=== PATIENT | male | born 1990 | race Caucasian/White ===

== ENCOUNTER 2023-01-05 14:07 | Outpatient (REF) | payer OTHER, SELFPAY ==
[2023-01-05 14:53] LABS: Influenza A PCR NEGATIVE (Negative); Influenza B PCR NEGATIVE (Negative); Resp Syncy Virus RNA Qual PCR NEGATIVE (Negative); SARS COV2 PCR INHOUSE NEGATIVE (Negative)
== END 2023-01-05 14:08 | disposition home or self-care (01) ==
LOC: HO.LNP 14:07
PROVIDERS: Visit Provider Physician Assistant
DX: Z20.822 Contact with and (suspected) exposure to COVID-19 (principal); B34.9 Viral infection, unspecified
CPT/HCPCS: 0241U

== ENCOUNTER 2023-04-07 08:07 | Outpatient (REF) | payer OTHER, SELFPAY ==
[2023-04-07 11:08] LABS: C Reactive Protein 0.18 mg/dL (< or = 0.50)
[2023-04-07 11:39] LABS: Folate 10.5 ng/mL (> or = 4.0); Vitamin B12 233 pg/mL (200-900)
[2023-04-09 14:54] LABS: H Pylori Breath Test Negative (Negative)
[2023-04-14 16:23] LABS: Vitamin D 25-OH, D2 <4 ng/mL; Vitamin D 25-OH, D3 15 ng/mL; Vitamin D 25-OH, Total 15 ng/mL (30-100)
== END 2023-04-07 08:08 | disposition home or self-care (01) ==
LOC: HO.LAB 08:07
PROVIDERS: PCP Nurse Practitioner Family; Referring Provider Nurse Practitioner Family; Visit Provider Nurse Practitioner Family
DX: R19.7 Diarrhea, unspecified (principal); E55.9 Vitamin D deficiency, unspecified; K58.9 Irritable bowel syndrome, unspecified; R19.4 Change in bowel habit; K58.2 Mixed irritable bowel syndrome; K21.9 Gastro-esophageal reflux disease without esophagitis; R14.0 Abdominal distension (gaseous)
CPT/HCPCS: 36415; 82306; 82607; 82746; 83013; 86140

== ENCOUNTER 2023-06-29 08:04 | Outpatient (AMB) | payer OTHER, SELFPAY ==
--- NOTE | 2023-06-29 08:10 | MHC.OFFVIS ---
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 Will give him script for Citrucel to help him bulk his stools IBS (irritable bowel syndrome) Frequent loose stools postprandially specially in the morning. Patient does not feel like he empties completely. Frequent postprandial bloating. Discussed with patient avoiding dietary triggers. Low FODMAP diet discussed with him. List of food recommended as well as list of food to avoid given to patient. GERD (gastroesophageal reflux disease) Patient reports occasional acid reflux without dyspepsia, dysphagia or odynophagia. Patient does eat lot of spicy food. Patient was encouraged to decrease the amount of spicy food that he eats. Patient was encouraged to avoid dietary triggers and late night snacking. Staying upright for minimum 3 hours after meals discussed with patient. Postprandial abdominal bloating Postprandial abdominal bloating occasionally. Patient was encouraged to follow low FODMAP diet. List of food recommended as well as list of food to avoid giving the patient. Patient was sent by PCP for blood work he was encouraged to get it done today. I will add vitamin D, B12, folate. Will do H pylori breath test. I will see patient in 3 months, sooner if needed patient patient is agreeable to this plan and verbalizes understanding of instructions. He was given the opportunity to ask questions and all questions answered. ? Thank you for allowing me to participate in his care Plan Orders Orders Vitamin B12 and Folate Today R19.7 Vitamin D 25-OH (D2 and D3) Today E55.9 C Reactive Protein Today K58.9 H Pylori Breath Test Today Medications New methylcellulose (laxative) (Citrucel) take it with full glass of water 500 mg PO DAILY 90 tabs 2RF K59.00 TODAY'S VISIT: Patient is here today for follow-up and to discuss lab results. Patient reports that he has been doing better since the last time I have seen him. Patient states that he changed his diet. However he reports that sometimes he will still eat fast food and that is when he feels like the symptoms are worse. Patient will have loose stools and postprandial abdominal bloating. Lab results discussed with patient. Patient has not picked up in the prescription from the pharmacy vitamin-D or the Citrucel. Patient denies any abdominal pain or discomfort. Patient denies any nausea or vomiting. Patient denies any dyspepsia, dysphagia or odynophagia. Patient denies any melena, hematochezia, unintentional weight loss or ribbon like stools. PFSH Surgical History No pertinent past surgical history Family History Father No problems noted. Mother Depression Brother No problems noted. Maternal Grandfather Cancer of prostate Parkinson disease Maternal Grandmother No problems noted. Paternal Grandmother No problems noted. Paternal Grandfather High cholesterol Social History Household Members: Significant Other Alcohol intake: current Alcohol intake frequency: holidays/special occasions only Patient Tobacco Use Status: Never used Tobacco Substance Use Type: Marijuana Review of Systems Const Denies weight gain and Denies weight loss ENT Reports no additional complaints, Denies dysphagia and Denies odynophagia Card Reports no additional complaints Resp Reports no additional complaints GI Denies abdominal pain, Denies belching, Denies melena, Denies bloating, Denies change in bowel habits, Denies dysphagia, Denies excessive flatus, Denies dyspepsia, Denies heartburn, Denies diarrhea, Reports loose stools (occasional), Denies nausea, Denies odynophagia and Denies vomiting Reports no additional complaints Musc Reports no additional complaints Neuro Reports no additional complaints Psych Reports no additional complaints Endo Reports no additional complaints Physical Exam Vital Signs: Last Vital Signs Pulse 92 06/29/23 08:11 BP 139/77 06/29/23 08:11 BMI result Body Mass Index 28.0 Const General: healthy appearing, no acute distress and well developed Nutritional Appearance: well nourished Orientation/consciousness: patient oriented x3 HEENT Head: Yes normal to inspection, Yes normocephalic and Yes atraumatic Face and sinus: Yes normal facial exam Mouth: Normal oral and palatal mucosa present Throat: Yes posterior oropharynx normal, Yes tonsils normal and Yes uvula midline Eyes General: appearance normal, both eyes and all related structures Neck Neck: Yes normal visual inspection, Yes full ROM and Yes trachea midline Thyroid: Thyroid normal Resp Effort & Inspection: normal respiratory effort, able to speak in complete sentences, no tracheal deviation and symmetric chest movement Auscultation: clear to auscultation bilaterally Cardio Rate: regular rate Heart sounds: S1 normal heart sound present and S2 normal heart sound present GI Inspection: Yes normal to inspection and No distended Palpation (GI): Soft to palpation, not firm, nontender and No hepatosplenomegaly present Auscultation: normal bowel sounds General: Yes no CVA tenderness Back/Spine/Pelvis Back: no CVA tenderness Skin General skin exam: elasticity normal, turgor normal and dry skin Neuro General: patient oriented x3 Psych Appearance: grossly normal Mental Status: mental status grossly normal Speech and movement: Normal speech and movement present Results Reviewed Results Reviewed: Laboratory Tests 04/07/23 04/07/23 04/07/23 08:51 09:10 09:10 C-Reactive Protein 0.18 Vitamin B12 233 25-OH Vitamin D Total 15 L Folate 10.5 H. pylori Breath Test Negative Assessment & Plan Assessment & Plan (1) Increased bowel frequency: Code(s): R19.4 - Change in bowel habit (2) IBS (irritable bowel syndrome): Code(s): K58.9 - Irritable bowel syndrome without diarrhea Qualifiers: Irritable bowel syndrome type: with both diarrhea and constipation Qualified Code(s): K58.2 - Mixed irritable bowel syndrome (3) Postprandial abdominal bloating: Code(s): R14.0 - Abdominal distension (gaseous) Plan Patient will continue diet elimination. She is aware of which food is causing him have loose stools postprandially. He will follow-up with our office on as needed basis. He is agreeable to this plan and verbalizes understanding of instructions. Take care of her review ask questions and all questions answered. Thank you for allowing me to participate in his care Medications: Refilled cholecalciferol (vitamin D3) 50 mcg PO DAILY 90 caps 3RF R79.89 - Other specified abnormal findings of blood chemistry methylcellulose (laxative) (Citrucel) take it with full glass of water 500 mg PO DAILY 90 tabs 2RF K59.00 - Constipation, unspecified Coding Level of Care Code Est Pt Level 3 (23108) Diagnoses Increased bowel frequency R19.4 IBS (irritable bowel syndrome) K58.2 Irritable bowel syndrome type: with both diarrhea and constipation Postprandial abdominal bloating R14.0 Time Spent (min) 30 Comment 20 minutes spent with patient and additional 10 minutes spent reviewing his records
[2023-06-29 08:11] VITALS: BP 139/77; PULSE 92; BMI 28.0
== END 2023-06-29 08:38 | disposition home or self-care (01) ==
PROVIDERS: Visit Provider Nurse Practitioner Family
DX: R19.4 Change in bowel habit (principal); K58.2 Mixed irritable bowel syndrome; R14.0 Abdominal distension (gaseous)
CPT/HCPCS: 99213

== ENCOUNTER → 2023-06-29 08:04 | Outpatient (BNVA) | payer OTHER, SELFPAY | PROVIDERS: Visit Provider Nurse Practitioner Family ==

== ENCOUNTER 2024-02-24 10:14 | Outpatient (AMB) | payer OTHER, SELFPAY ==
--- NOTE | 2024-02-24 10:31 | A.OFFPC_ITS ---
Vital Signs 02/24/24 10:32 Height 5 ft 8 in Weight 176 lb BMI 26.8 BP 122/78 Blood Pressure Location Rt brachial Position Sitting Pulse 84 Pulse Source Pulse Oximeter Pulse Oximetry (%) 98 Oxygen Delivery Method Room Air Intake Visit Reasons: Medication review/depression Intake Note: Patient here to discuss ADHD meds. Pt states he sees a therapist for depression. Allergies oxycodone Adverse Reaction (Unknown, Verified 02/24/24 12:59) Itchy skin Medication List - Last Reconciled 02/24/24 by DARRYL Pope No Known Home Meds Tobacco use date assessed: 02/24/24 Dental Screening Dental Screen Date: 02/24/24 Did you have a dental visit in the last 12 months?: Yes Did you have a dental problem in the last 6 months where you did not have access to dental care?: No Was dental information given to patient?: Patient has dentist HPI Medication review/depression HPI Details Pt is here for a PE. Will order labs. Pt has a hx of ADHD. He has tried wellbutrin SR in the past which caused panic attacks. Pt is seeing a therapist, first appointment was last week. Pt will likely be seeing a psychiatrist. denies any si or hi PFSH Surgical History No pertinent past surgical history Family History Father No problems noted. Mother Depression Brother No problems noted. Maternal Grandfather Cancer of prostate Parkinson disease Maternal Grandmother No problems noted. Paternal Grandmother No problems noted. Paternal Grandfather High cholesterol Social History Household Members: Significant Other Alcohol intake: current Alcohol intake frequency: holidays/special occasions only Patient Tobacco Use Status: Never used Tobacco Substance Use Type: Marijuana Cognitive needs: No Hearing needs: No Vision needs: Yes Questionnaire Thrive Questionnaire Date Thrive assessed: 01/14/23 AUDIT C Alcohol Use Questionnaire (AUDIT-C) 1. How often do you have a drink containing alcohol?: Monthly or less 2. How many drinks containing alcohol do you have on a typical day when you are drinking?: 1 or 2 3. How often do you have six or more drinks on one occasion?: Never Total Score: 1 Score Reviewed/Action Taken: No RAINA-7 AMB Questionnaire RAINA-7 Date RAINA - 7 assessed: 01/14/23 Source: Developed by Drs. Abdi Neely, Ana Castorena, Anthony Walden and colleagues, with an educational irasema from [employer]. Review of Systems Const Denies chills and Denies fever(s) Eyes Denies blurry vision ENT Denies vertigo, Denies dizziness and Denies sore throat Card Denies chest pain at rest, Denies chest pain with activity, Denies diaphoresis, Denies dyspnea and Denies dyspnea on exertion Resp Denies cough, Denies dyspnea, Denies dyspnea on exertion and Denies wheezing GI Denies abdominal pain, Denies melena, Denies hematochezia, Denies constipation, Denies diarrhea and Denies loose stools Denies hematuria Musc Denies numbness and Denies tingling Skin/Breast Denies lesions Neuro Denies vertigo, Denies dizziness, Denies numbness and Denies tingling Psych Denies anxiety, Denies depression, Denies homicidal ideation, Denies suicidal ideation and Denies other (substance abuse) Aller/Immun Denies wheezing Physical exam (Primary Care) Vital Signs: Last Vital Signs Pulse 84 02/24/24 10:32 BP 122/78 02/24/24 10:32 Pulse Ox 98 02/24/24 10:32 Oxygen Delivery Method Room Air 02/24/24 10:32 BMI result Body Mass Index 26.8 Tobacco/Smoking Status: Tobacco use Status Tobacco use date assessed 02/24/24 02/24/24 10:40 Patient Tobacco Use Status Never used Tobacco 02/24/24 10:40 Thrive Assessment: Date of Thrive Assessment Date Thrive assessed 01/14/23 02/24/24 10:40 Const General: cooperative Nutritional Appearance: well nourished Orientation/consciousness: patient oriented x3 HENMT Head: Yes normal to inspection, Yes normocephalic and Yes atraumatic Ears: TM's normal bilaterally Eyes General: appearance normal, both eyes and all related structures Alignment and Position: alignment normal and position normal Neck Neck: Yes normal visual inspection and Yes no lymphadenopathy Thyroid: Thyroid normal Resp Effort & Inspection: normal respiratory effort Auscultation: clear to auscultation bilaterally Cardio Rate: regular rate Rhythm: regular rhythm Heart sounds: S1 normal heart sound present, S2 normal heart sound present and no murmurs GI Palpation (GI): Soft to palpation and nontender Auscultation: normal bowel sounds Male General Exam: Yes normal external exam Penis: normal penis Scrotum: scrotum normal, testes descended bilaterally and no inguinal hernias Testes: no testicular mass Skin Rashes: no rashes Neuro General: patient oriented x3 Romberg Test: Negative Psych Appearance: grossly normal Mental Status: mental status grossly normal Speech and movement: Normal speech and movement present Affect: normal affect Attitude: cooperative Thought process: Normal thought process present Thought content: Normal thought content present Insight: Good insight present (Psych) Judgement: Good judgement present (Psych) Assessment and Plan Assessment & Plan (1) Physical exam: Code(s): Z. - Encounter for general adult medical examination without abnormal findings Plan: Labs ordered Plan The patient agreed to the use of a registered medical transcriptionist for this encounter. Scribed for DARRYL Serra by Mary Edward registered medical transcriptionist, on 02/24/2024 at 10:45 EST. Orders: Orders Comprehensive [place]. Panel Fast Today Z00.00 - Encounter for general adult medical examination without abnormal findings TSH reflex Free T4 Today Z00.00 - Encounter for general adult medical examination without abnormal findings Lipid Panel Today Z00.00 - Encounter for general adult medical examination w ithout abnormal findings Complete Blood Count Auto Diff Today Z00.00 - Encounter for general adult medical examination without abnormal findings UA CC w/rflx Micro + Cult Today Z00.00 - Encounter for general adult medical examination without abnormal findings Coding Level of Care Code Est Pt Level 3 (77839) Diagnoses Physical exam Z00.00
[2024-02-24 10:32] VITALS: BP 122/78; PULSE 84; O2SAT 98; BMI 26.8
== END 2024-02-24 12:01 | disposition home or self-care (01) ==
PROVIDERS: PCP Nurse Practitioner Family; Visit Provider Nurse Practitioner Family
DX: Z00.00 Encounter for general adult medical examination without abnormal findings (principal)
CPT/HCPCS: 99395

== ENCOUNTER 2025-08-10 09:10 | Outpatient (REF) | payer OTHER, SELFPAY ==
[2025-08-10 15:15] LABS: Chlamydia pneumoniae PCR Not Detected (Not Detect.); Coronavirus 229E PCR Not Detected (Not Detect.); Coronavirus HKU1 PCR Not Detected (Not Detect.); Coronavirus NL63 PCR Not Detected (Not Detect.); Coronavirus OC43 PCR Not Detected (Not Detect.); RSV PCR Not Detected (Not Detect.); Rhino/Enterovirus PCR Detected (Not Detect.)
[2025-08-10 15:32] LABS: Influenza A H1 PCR Not Detected (Not Detect.); Influenza A H1-2009 PCR Not Detected (Not Detect.); Influenza A H3 PCR Not Detected (Not Detect.); SARS-CoV-2 PCR Not Detected (Not Detect.)
== END 2025-08-10 09:11 | disposition home or self-care (01) ==
LOC: HO.LNP 09:10
PROVIDERS: PCP Nurse Practitioner Family; Visit Provider Physician Assistant Medical
DX: R05.8 Other specified cough (principal); R09.81 Nasal congestion; R51.9 Headache, unspecified; R50.9 Fever, unspecified
CPT/HCPCS: 87633

== ENCOUNTER 2025-08-10 09:10 | Outpatient (AMB) | payer OTHER, SELFPAY ==
[2025-08-10 09:24] VITALS: BP 118/78; PULSE 114; RESP 16; TEMP 36.9; O2SAT 96; BMI 26.1
--- NOTE | 2025-08-10 09:24 | AM.OFFWIN_ITS ---
Intake Vital Signs 08/10/25 09:24 Height 5 ft 11 in Weight 187 lb BMI 26.1 BP 118/78 Blood Pressure Location Lt brachial Position Sitting Respiration 16 Pulse 114 H Pulse Source Pulse Oximeter Temp 98.5 F Temp Source Oral Pulse Oximetry (%) 96 Oxygen Delivery Method Room Air Intake Visit Reasons: EP flu like symptoms, fever, headache Patient Tobacco Use Status: Never used Tobacco Allergies oxycodone Adverse Reaction (Unknown, Verified 02/24/24 12:59) Itchy skin HPI HPI Comments History of Present Illness Details History - The patient is a 35-year-old male pres enting with influenza-like symptoms. - Symptoms began on Thursday with a sore t hroat and body aches, progressing to include teeth pain, cough, and diarrhea by Thursday. - The sore throat resolved by Thursday, ut other symptoms persisted, accompanied by excessive sweating. - He has been draining from his sinuses into the back of his throat and into the chest. - The patient has been using DayQuil and Robitussin for symptom management and reports significant fluid intake, consuming approximately 10 glasses of water daily. - The patient has lost approximately 8 p ounds since the onset of symptoms. 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 - He works for [employer] and is afraid to get his clients sick. - He is a non-smoker. - He denies fever or chills, DURANT, CP, SOB , abd pain, n/v. - He needs a note for work since he has been out since Thursday. Physical Exam General: Cooperative, healthy appearing, comfortable and no acute distress Orientation/consciousness: Patient oriented x3 Limitations: No limitations Head: Normal to inspection Ears: Hearing grossly normal bilaterally, external ears normal and TM's normal bilaterally Nose: Normal external nose present, normal nares present, and no nasal discharge present. Face and sinus: Sinuses nontender to palpation. Mouth: Normal oral and palatal mucosa present and moist mucous membranes noted. Throat: Tonsils normal. Uvula is midline. Posterior oropharynx with erythema and no exudates. Eyes: Appearance normal, both eyes and all related structures Neck: Normal visual inspection, full ROM. No lymphadenopathy noted. Respiratory: Clear to auscultation bilaterally. Normal respiratory effort, able to speak in complete sentences. No respiratory distress, not tachypneic, no tripod positioning and no use of accessory muscles. Cardiovascular: Regular rate and rhythm. Normal S1 and S2 Skin: No rashes or lesions noted Patient was informed and verbally consented to the use of an ambient scribe for clinic note documentation during this visit [facility] Surgical History No pertinent past surgical history Family History Father No problems noted. Mother Depression Brother No problems noted. Maternal Grandfather Cancer of prostate Parkinson disease Maternal Grandmother No problems noted. Paternal Grandmother No problems noted. Paternal Grandfather High cholesterol Social History Household Members: Significant Other Alcohol intake: current Alcohol intake frequency: holidays/special occasions only Patient Tobacco Use Status: Never used Tobacco Substance Use Type: Marijuana Cognitive needs: No Hearing needs: No Vision needs: Yes Review of Systems Const All systems reviewed & are unremarkable except as noted in HPI and below Physical Exam Vital Signs: Last Vital Signs Temp 98.5 F 08/10/25 09:24 Pulse 114 H 08/10/25 09:24 Resp 16 08/10/25 09:24 BP 118/78 08/10/25 09:24 Pulse Ox 96 08/10/25 09:24 Oxygen Delivery Method Room Air 08/10/25 09:24 BMI result Body Mass Index 26.1 Assessment & Plan Assessment & Plan (1) Cough with congestion of paranasal sinus: Code(s): R05.8 - Other specified cough; R09.81 - Nasal congestion Plan Most likely URI vs covid vs flu vs RSV vs viral illness plan - Continue supportive care with DayQuil, Nyquil, Tylenol, and Motrin as needed for symptom relief. - Encourage increased fluid intake to prevent dehydration. - A lab test was conducted to rule out RSV and COVID-19, with results pending. - Advise against using anti-diarrheal medications to allow the virus to clear naturally. - Recommend dietary modifications including bland foods such as crackers, soup, and bananas to help manage symptoms. - will give him a work note - follow up with PCP Orders: Orders Resp Pathogen Panel - [facility] Today J06.9 - Acute upper respiratory infection, unspecified Coding Level of Care Code Est Pt Level 3 (37752) Diagnoses Cough with congestion of paranasal sinus R05.8; R09.81
== END 2025-08-10 09:57 | disposition home or self-care (01) ==
PROVIDERS: PCP Nurse Practitioner Family; Visit Provider Physician Assistant Medical
DX: R05.8 Other specified cough (principal); R09.81 Nasal congestion

== ENCOUNTER 2025-09-05 08:08 | Outpatient (AMB) | payer OTHER, SELFPAY ==
--- NOTE | 2025-09-05 08:10 | MHC.OFFWIV ---
Intake Vital Signs 09/05/25 08:11 Height 5 ft 11 in Weight 195 lb BMI 27.2 BP 132/70 Blood Pressure Location Lt brachial Position Sitting Respiration 16 Pulse 78 Pulse Source Pulse Oximeter Temp 98.2 F Temp Source Oral Pulse Oximetry (%) 98 Oxygen Delivery Method Room Air Intake Visit Reasons: ep swollen throat gland body aches Intake Note: Pt is here today c/o S/T and bodyaches x3days Patient Tobacco Use Status: Never used Tobacco Allergies oxycodone Adverse Reaction (Unknown, Verified 09/05/25 08:22) Itchy skin Do you need a note to return to daycare/school/sports/work: Yes HPI HPI Comments History of Present Illness Details History - The patient is a 35-year-old male presenting with sore throat. - The sore throat began 3 days ago, initially perceived as a mild cold due to weather changes, and progressed to include body aches by 2 days ago. - The patient denied coughing but reported a scratchy voice and painful swallowing, although he was able to eat. - denies cough, fevers, ear pain or sinus pain. - He has a history of recurrent streptococcal infections, having experienced strep throat approximately 10 times, though not in the past decade. 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 Physical Exam General: Cooperative, healthy appearing, comfortable and no acute distress Orientation/consciousness: Patient oriented x3 Limitations: No limitations Head: Normal to inspection Ears: Hearing grossly normal bilaterally, external ears normal and TM's normal bilaterally Nose: Normal external nose present, Normal nares present and No nasal discharge present Face and sinus: Normal facial exam and Yes sinuses nontender Mouth: Normal oral and palatal mucosa present and moist mucous membranes Throat: Yes tonsils normal, Yes uvula midline. Posterior oropharynx erythema, exudates present on right side Eyes: Appearance normal, both eyes and all related structures Neck: Normal visual inspection, full ROM Respiratory: Normal respiratory effort, able to speak in complete sentences Skin: No rashes or lesions noted Neuro: Patient oriented x3 Extremities: Normal to inspection and Yes no clubbing, cyanosis or edema Review of Systems - ENT: Reports sore throat and scratchy voice. Denies ear pain and sinus pain. - General: Reports body aches. Denies cough. All systems reviewed and are unremarkable except as noted in HPI [facility] Surgical History No pertinent past surgical history Family History Father No problems noted. Mother Depression Brother No problems noted. Maternal Grandfather Cancer of prostate Parkinson disease Maternal Grandmother No problems noted. Paternal Grandmother No problems noted. Paternal Grandfather High cholesterol Social History Household Members: Significant Other Alcohol intake: current Alcohol intake frequency: holidays/special occasions only Patient Tobacco Use Status: Never used Tobacco Substance Use Type: Marijuana Cognitive needs: No Hearing needs: No Vision needs: Yes Physical Exam Vital Signs: Last Vital Signs Temp 98.2 F 09/05/25 08:11 Pulse 78 09/05/25 08:11 Resp 16 09/05/25 08:11 BP 132/70 09/05/25 08:11 Pulse Ox 98 09/05/25 08:11 Oxygen Delivery Method Room Air 09/05/25 08:11 BMI result Body Mass Index 27.2 Results AMB Rapid Strep AMB Rapid Strep Negative Last Edit by Sosa Cook CMA on 09/05/25 08:25 Results Reviewed Results Reviewed: Laboratory Last Values Strep Scn Rapid Clinic Negative 09/05/25 08:24 Assessment & Plan Assessment & Plan (1) Strep pharyngitis: Code(s): J02.0 - Streptococcal pharyngitis Plan: Plan Patient was informed and verbally consented to the use of an ambient scribe for clinic note documentation during this visit. Streptococcal Pharyngitis - VSS, pt well appearing and PE remarkable for exudates on right side. - Centor Score 3, 28-35% probability of strep despite having a negative rapid strep test, will treat. - Prescribed amoxicillin 500 mg twice daily for 10 days. - Advised to avoid work until to prevent spreading infection. 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 Orders: Orders AMB Rapid Strep Screen Today Bertha New PA-C Z13.9 - Encounter for screening, unspecified Medications: New amoxicillin 500 mg PO Q12H 20 tabs 0RF Dianna Estrada PA-C Coding Level of Care Code Est Pt Level 3 (85623) Diagnoses Strep pharyngitis J02.0
[2025-09-05 08:11] VITALS: BP 132/70; PULSE 78; RESP 16; TEMP 36.8; O2SAT 98; BMI 27.2
== END 2025-09-05 08:51 | disposition home or self-care (01) ==
PROVIDERS: PCP Nurse Practitioner Family; Visit Provider Physician Assistant
DX: Z13.9 Encounter for screening, unspecified (principal); J02.0 Streptococcal pharyngitis

== ENCOUNTER → 2025-09-05 08:08 | Outpatient (BNVA) | payer OTHER, SELFPAY | PROVIDERS: PCP Nurse Practitioner Family; Visit Provider Physician Assistant | DX: J02.0 Streptococcal pharyngitis (principal) | CPT/HCPCS: 87880 ==